=== PATIENT | female | born 1970 | race American Indian/Alaskan Native ===

== ENCOUNTER 2021-11-13 01:53 | Emergency (ER) | payer OTHER ==
[2021-11-13] MEDS ORDERED: ASPIRIN 325 MG TAB PO ONE (02:35)
--- NOTE | 2021-11-13 02:58 | Event Note ---
Date: 11/13/21 EMS documentation not available at time of chart dictation Medical screening examination note: 51-year-old female, brought to the hospital by EMS with a complaint of numbness, breathing heavily, and chest tightness. Currently awake, alert, oriented, sober, GCS of 15. Saturating 100% on room air. Check appropriate laboratory studies, EKG, chest x-ray, detailed history and physical to be performed by ER provider. EKG interpreted by myself, and 02: 3 3 AM Sinus rhythm, tachycardia, rate 101 bpm. Left axis deviation, left anterior fascicular block, atrial enlargement, QTC 5 1 3 ms. Abnormal EKG. Not a STEMI. Ultimately, the patient insisted on leaving without completion of her medical work-up and evaluation. Patient presents as awake, alert, oriented, sober, of sound mind, and exhibits decision-making capacity. Patient is encouraged to return to the emergency room right away if and when she changes her mind Vital Signs 11/13/21 11/13/21 02:26 02:55 Temperature 98 F 98.4 F Pulse Rate 111 H 98 H Respiratory 18 20 Rate Blood Pressure 140/96 Blood Pressure 124/80 [Right] O2 Sat by Pulse 96 98 Oximetry
[2021-11-13 03:22] LABS: Basophils # (Auto) 0.1 K/mm3 (0.0-0.1); Eosinophils # (Auto) 0.3 K/mm3 (0.0-0.4); Eosinophils % (Auto) 5.7 % (0.0-4.3); Hematocrit 40.6 % (30.3-42.9); Hemoglobin 13.9 gm/dl (10.1-14.3); Lymphocytes # (Auto) 1.2 K/mm3 (1.2-5.4); Lymphocytes % (Auto) 20.8 % (13.4-35.0); Mean Corpuscular HGB Conc 34 % (30-34); Mean Corpuscular Volume 90 fl (79-97); Monocytes # (Auto) 0.5 K/mm3 (0.0-0.8); Monocytes % (Auto) 8.7 % (0.0-7.3); Platelet Count 283 K/mm3 (140-440); Red Cell Distribution Width 13.9 % (13.2-15.2)
[2021-11-13 03:34] LABS: INR 0.86 (0.87-1.13)
[2021-11-13 03:44] LABS: Alanine Aminotransferase 7 units/L (7-56); Albumin 4.4 g/dL (3.9-5); BUN/Creatinine Ratio 15; Blood Urea Nitrogen 30 mg/dL (7-17); Calcium 9.7 mg/dL (8.4-10.2); Hemolysis Index 8
[2021-11-13] MEDS ORDERED: POTASSIUM CHLORIDE ER 20 MEQ TAB PO ONE (04:31)
--- NOTE | 2021-11-13 04:53 | XRay Report ---
CHEST 2 VIEWS INDICATION / CLINICAL INFORMATION: CHESTPAIN. COMPARISON: None available. FINDINGS: SUPPORT DEVICES: Right IJ port appears appropriately positioned. HEART / MEDIASTINUM: Mild cardiomegaly. LUNGS / PLEURA: No significant pulmonary or pleural abnormality. No pneumothorax. ADDITIONAL FINDINGS: No significant additional findings. IMPRESSION: 1. Mild cardiomegaly without acute pulmonary abnormality. Signer Name: Jeremy Mendoza MD Signed: 11/13/2021 4:49 AM Workstation Name: [id number]
[2021-11-13 05:08] VITALS: BP 119/84
--- NOTE | 2021-11-13 12:12 | Electrocardiograph Report ---
[facility] Test Date: 2021-11-13 Test Time: 02:16:54 Pat Name: ANA CRISTINA MANZANO Department: Room: Gender: F [employer]: RKKRUNAL : 1970 Requested By: LUL VALENCIA Order Number: [id number] Reading MD: Chester Bermudez Measurements Intervals [place] Rate: 101 P: 59 OR: 151 QRS: -20 QRSD: 101 T: 140 QT: 395 QTc: 513 Interpretive Statements Sinus tachycardia Biatrial enlargement Left ventricular hypertrophy Anterior Q waves, possibly due to LVH Abnormal T, consider ischemia, lateral leads Prolonged QT interval No previous ECG available for comparison Electronically Signed On 11-13-2021 12:11:59 EDT by Chester Bermudez
== END 2021-11-13 05:16 | disposition left against medical advice (07) ==
LOC: ED 01:53
DX: F41.9 Anxiety disorder, unspecified (principal); Z53.21 Procedure and treatment not carried out due to patient leaving prior to being seen by health care provider
CPT/HCPCS: 36415; 71046; 80053; 80320; 82550; 83735; 84443; 84484; 85025; 85610; 93005; G0480